=== PATIENT | male | born 2000 | race Caucasian/White ===

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

== ENCOUNTER 2019-03-27 11:06 | Inpatient (IN) | payer OTHER ==
[~2019-03-27] VITALS: Ht 167.6 cm; Wt 83.2 kg
[2019-03-27 11:39] LABS: HEMOGLOBIN 15.7 g/dl (13.5-17.5); MEAN CORPUSCULAR HEMOGLOBIN 29.1 pg (27.0-33.0); MEAN CORPUSCULAR HGB CONC 34.1 g/dl (32.0-36.5); MEAN CORPUSCULAR VOLUME 85.2 fl (80.0-96.0); PLATELET COUNT, AUTOMATED 318 10^3/uL (150-450); WHITE BLOOD COUNT 7.2 10^3/uL (4.0-10.0)
[2019-03-27 12:06] LABS: AMPHETAMINES LEVEL URINE NEGATIVE (NEGATIVE); BARBITURATES URINE NEGATIVE (NEGATIVE); BENZODIAZEPINES URINE NEGATIVE (NEGATIVE); CANNABINOIDS URINE NEGATIVE (NEGATIVE); COCAINE METABOLITE URINE NEGATIVE (NEGATIVE); METHADONE URINE NEGATIVE (NEGATIVE); OPIATES URINE NEGATIVE (NEGATIVE); PHENCYCLIDINE URINE NEGATIVE (NEGATIVE)
[2019-03-27 12:30] LABS: ACETAMINOPHEN LEVEL < 2.0 UG/ML (10.0-30.0); ALBUMIN 4.1 GM/DL (3.2-5.2); ALT/SGPT 34 U/L (12-78); BILIRUBIN,DIRECT 0.1 MG/DL (0.0-0.2); BILIRUBIN,TOTAL 0.3 MG/DL (0.2-1.0); BLOOD UREA NITROGEN 12 MG/DL (7-18); CARBON DIOXIDE LEVEL 25 MEQ/L (21-32); CHLORIDE LEVEL 108 MEQ/L (98-107); CREATININE FOR GFR 0.73 MG/DL (0.70-1.30); ETHYL ALCOHOL (ETHANOL) < 0.003 % (0.000-0.010); GLUCOSE, FASTING 98 MG/DL (70-100); POTASSIUM SERUM 4.4 MEQ/L (3.5-5.1); SALICYLATE LEVEL < 1.7 MG/DL (5.0-30.0); SODIUM LEVEL 140 MEQ/L (136-145); TOTAL PROTEIN 7.6 GM/DL (6.4-8.2)
[2019-03-27 14:23] VITALS: BP 136/82
[2019-03-28 06:00] VITALS: BP 125/71
--- NOTE | 2019-03-28 08:43 | HPEPDOC ---
[facility] Medical History & Physical Date of Admission Mar 28, 2019 Date of Service: Mar 28, 2019 Attending Physician: ORLANDO SHERWOOD MD History and Physical Chief complaint: "He broke down at work History of present illness: This is the 18-year-old male with no significant medical history, comes to the psychiatric unit and we have been consulted for medical reasons. The patient said that he was at work and felt very depressed and broke down. States that he has a lot of stressors and suffers from dep ression, but does not take any medications. He is not giving me any other details of what caused him to this breakdown He currently has been admitted to the psychiatric facility and the management will be as per him. He denies any shortness of breath, any chest pain, any headache. He states that he does not have any intentions of hurting himself or anybody else at this point of time. Family history. Hypertension. Social history. Denies smoking. Denies any drug abuse. Denies any recreational d rug use. Past medical history none except for depression. Past surgical history none as per patient Review of systems. Pertinent positive findings as per HPI and is negative PHYSICAL EXAMINATION: General: The patient is awake, alert, oriented x3, sitting up in the bed in no apparent distress. Head and Neck Exam: Extraocular muscles intact. Pupils equally round and reactive to light. Mucous membranes are moist. Neck is supple. There is no jugular venous distention (JVD). Cardiovascular: S1 and S2, regular rate. No real edema Respiratory: Clear auscultation Abdomen: Soft. Positive bowel sounds. Nontender. No organomegaly. Genitourinary: Deferred Musculoskeletal: Clubbing of the fingernails, no cyanosis was noted. Central Nervous System (PHP MYSQL DEVELOPER): No focal deficit. Power is 5/5 in all extremities. Assessment and plan This is a 18-year-old male was been admitted to the psychiatric facility for depression. And we have been consulted for medical management. 1. Depression as per psychiatric Patient has no other medical problems. I will sign off. Reconsult if needed Vital Signs Vital Signs Date Time Temp Pulse Resp B/P (MAP) Pulse Ox O2 Delivery O2 Flow Rate FiO2 03/28/19 06:00 98.2 92 14 125/71 (89) 03/27/19 13:23 100 Laboratory Data Labs 24H Laboratory Tests 2 03/27/19 11:21: Nucleated Red Blood Cells % (auto) 0.0, Anion Gap 7L, Calcium Level 9.0, Aspartate Amino Transf (AST/SGOT) 27, Alanine Aminotransferase (ALT/SGPT) 34, Alkaline Phosphatase 89, Total Bilirubin 0.3, Direct Bilirubin 0.1, Total Protein 7.6, Albumin 4.1, Albumin/Globulin Ratio 1.17, Thyroid Stimulating Hormone (TSH) 1.420, Salicylates Level < 1.7L, Urine Amphetamines Screen NEGATIVE, Urine Benzodiazepines Screen NEGATIVE, Urine Opiates Screen NEGATIVE, Urine Methadone Screen NEGATIVE, Acetaminophen Level < 2.0L, Urine Barbiturates Screen NEGATIVE, Urine Phencyclidine Screen NEGATIVE, Urine Cocaine Metabolite Screen NEGATIVE, Urine Cannabinoids Screen NEGATIVE, Ethyl Alcohol Level < 0.003 CBC/BMP Laboratory Tests 03/27/19 11:21 Red Blood Count 5.40, Mean Corpuscular Volume 85.2, Mean Corpuscular Hemoglobin 29.1, Mean Corpuscular Hemoglobin Concent 34.1, Red Cell Distribution Width 12.2 Home Medications No Active Prescriptions or Reported Meds Allergies Coded Allergies: Penicillins (Verified Allergy, Unknown, UNKNOWN REACTION, 03/27/19) Sulfa (Sulfonamide Antibiotics) (Verified Allergy, Unknown, UNKNOWN REACTION, 03/27/19) A-FIB/CHADSVASC A-FIB History Current/History of A-Fib/PAF?: No Current PO Anticoag Therapy: No ORLANDO SHERWOOD MD Mar 28, 2019 08:42
--- NOTE | 2019-03-28 11:43 | MHHPEPDOC ---
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 Psychiatric Review of Systems Depression (2 or more weeks): depressed mood, feelings of worthlesness, suicidal thoughts Muna (4 or more days of): denies Psychosis: denies PTSD: denies Anxiety: situational anxiety, stressor related anxiety Anxiety/ 6 months or more of: restlessness, keyed up, difficulty concentrating, irritability Past Psychiatric History Previous Psychiatric Diagnosis: depression Previous Psychiatric Admissions: denies Suicide Attempts: OD as SA at 15y/o never sought out help Psychiatric Follow-up: [facility] Psychiatric medications: none Past Medical History Medical Problems denies Head Injury: No Seizures: No Hospitalizations: No Surgeries: No Family Medical/Psychiatric HX Medical Problems noncontributory Psychiatric Disorders: No Addiction: No Suicide Attemps/Completions: No Addiction History denies Social History Childhood: born and raised in [place] by his father mostly as parents when he was a small child, has been estranged from his father for 2yrs and had been living with his mother until joined the , overall good childhood, no siblings Abuse/Trauma:denies Current Living Situation: 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 Social Support: family, ex-fiance Legal: denies Marital: single, never , no kids Mental Status Examination General Appearance: well groomed, appears stated age, hospital scubs/clothing Build: average Demeanor: average Eye Contact: average Activity: average, anxious Behavior: cooperative Speech: clear, spontaneous, reg/rate,rhythm,volume Mood: euthymic, anxious Mood better Affect: full, appropriate, anxious Thought Process: logical/linear, depressed, intact Thought Content (Delusions): none reported, denies SI, HI, AVH Thought Content (Other): none reported, appropriate Thought Content (Aggressive): none reported Perception (Hallucinations): none reported Perception (Other): none reported Cognition (Impairment of): none reported Cognition(Intelligence Est.): average Oriented: Awake, Alert, Oriented times three Insight: fair Judgment: Fair Psychosis: Denies Diagnoses unspecified depression r/o Adjustment d/o with depressed mood A-FIB/CHADSVASC A-FIB History Current/History of A-Fib/PAF?: No Current PO Anticoag Therapy: No Treatment Treatment ordered: NONE Reason Anticoagulant not given: Not indicated/[id number] Assessment Pt seen and states "I had a break down at work and realized I needed to get some help" as to why he's here. States that his breakdown may be due to something back home yet doesn't know what specifically about but think it may be anxiety about going home with all the stressors mentioned in HPI and trying to work things out with his ex-fiance back home (broke up a year ago) as they have been communicating on the phone and may get back together. 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 States he feels a bit better being here and denies SI currently. Denies he feels he needs to start an antidepressant yet and feels he wants to try therapy first and agrees to go to all group therapy for treatment and learning coping skills. Will provide vistaril prn anxiety and trazodone prn insomnia, risks/benefits discussed. Feels safe here. Initial Treatment Plan 1. Patient was admitted on a 9.39 status. 2. Complete history was obtained. 3. With patients permission, family will be contacted and database will be expanded. 4. Patients medication regimen will be reviewed and changed accordingly. 5. Patient will be provided with protected environment. 6. Patient will be treated with individual, group, and milieu therapies. 7. Patient will receive supportive psych-education. 8. Discharge planning will commence immediately. 9. Outpatient follow-up treatment will be strongly recommended. 10. The initial treatment plan will focus initially on: * Depression. * Risk for suicide. * Substance abuse. 11. vistaril 25mg q6hr prn anxiety and trazodone 50mg qhs prn insomnia ESTIMATED LENGTH OF STAY: 5-7 DAYS. TIME SPENT COUNSELING AND COORDINATING INITIAL CARE: 60 minutes. Vital Signs Vital Signs Date Time Temp Pulse Resp B/P (MAP) Pulse Ox O2 Delivery O2 Flow Rate FiO2 03/28/19 06:00 98.2 92 14 125/71 (89) 03/27/19 13:23 100 Laboratory Data 24H Labs Laboratory Tests 2 03/27/19 11:21: Nucleated Red Blood Cells % (auto) 0.0, Anion Gap 7L, Calcium Level 9.0, Aspartate Amino Transf (AST/SGOT) 27, Alanine Aminotransferase (ALT/SGPT) 34, Alkaline Phosphatase 89, Total Bilirubin 0.3, Direct Bilirubin 0.1, Total Protein 7.6, Albumin 4.1, Albumin/Globulin Ratio 1.17, Thyroid Stimulating Hormone (TSH) 1.420, Salicylates Level < 1.7L, Urine Amphetamines Screen NEGATIVE, Urine Benzodiazepines Screen NEGATIVE, Urine Opiates Screen NEGATIVE, Urine Methadone Screen NEGATIVE, Acetaminophen Level < 2.0L, Urine Barbiturates Screen NEGATIVE, Urine Phencyclidine Screen NEGATIVE, Urine Cocaine Metabolite Screen NEGATIVE, Urine Cannabinoids Screen NEGATIVE, Ethyl Alcohol Level < 0.003 CBC/BMP Laboratory Tests 03/27/19 11:21 Red Blood Count 5.40, Mean Corpuscular Volume 85.2, Mean Corpuscular Hemoglobin 29.1, Mean Corpuscular Hemoglobin Concent 34.1, Red Cell Distribution Width 12.2 Medications No Active Prescriptions or Reported Meds Allergies Coded Allergies: Penicillins (Verified Allergy, Unknown, UNKNOWN REACTION, 03/27/19) Sulfa (Sulfonamide Antibiotics) (Verified Allergy, Unknown, UNKNOWN REACTION, 03/27/19) MARIE VO DO Mar 28, 2019 11:42
[2019-03-28] MEDS ORDERED: traZODone 50 MG TAB PO PRN (11:45)
[2019-03-28] MEDS ORDERED: hydrOXYzine 25 MG TAB PO PRN (11:45)
[2019-03-28] MEDS ORDERED: MOM 30ML SUSPENSION UDC PO PRN (14:00)
[2019-03-28] MEDS ORDERED: ACETAMINOPHEN TAB 650MG DOSE (2X325MG) PO PRN (14:00)
[2019-03-28] MEDS ORDERED: MAALOX 30 ML SUSP *UDC PO PRN (14:00)
[2019-03-28 18:21] VITALS: BP 140/85
[2019-03-29 06:36] VITALS: BP 120/63
--- NOTE | 2019-03-29 15:04 | MHIPN ---
DATE: 03/29/2019 The patient today states that he is feeling better. Says his mood is 3/10, where the closest to 10 is the most depressed. He says he slept very well without even needing trazodone and he states "My suicidal thoughts are gone." MENTAL STATUS EXAMINATION: He is alert and oriented times three. Eye contact fairly good. He is verbally spontaneous. There is no formal thought disorder noted. Mood is better. Affect full range and appropriate. He is not psychotic, suicidal or homicidal. Concentration and memory is good. Insight and judgment is fair. DIAGNOSIS: Unspecified depressive disorder. TREATMENT PLAN: At this point, we will continue to further evaluate the patient for continued elevation of his mood and continued resolution of suicidal ideations and to titrate his medications as indicated.
[2019-03-29 18:11] VITALS: BP 150/84
[2019-03-30 06:09] VITALS: BP 116/70
--- NOTE | 2019-03-30 09:05 | MHIPNPDOC ---
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 VITAL SIGNS: See below. NEW TEST RESULTS: See below. CURRENT MEDICATIONS: See below. MENTAL STATUS EXAMINATION: General Appearance: well groomed, appears stated age, hospital scubs/clothing Build: average Demeanor: average Eye Contact: average Activity: average, less anxious Behavior: cooperative Speech: clear, spontaneous, reg/rate,rhythm,volume Mood: euthymic, less anxious Mood ok Affect: full, appropriate, congruent Thought Process: logical/linear, less depressed, intact Thought Content (Delusions): none reported, denies SI, HI, AVH Thought Content (Other): none reported, appropriate Thought Content (Aggressive): none reported Perception (Hallucinations): none reported Perception (Other): none reported Cognition (Impairment of): none reported Cognition(Intelligence Est.): average Oriented: Awake, Alert, Oriented times three Insight: fair Judgment: Fair Psychosis: Denies DIAGNOSES: unspecified depression r/o Adjustment d/o with depressed mood ASSESSMENT:Pt seen and states that his mood is "ok." States he slept well last night. Feels he is tolerating his medications and they're beneficial. He is attending groups and finding them helpful. He denies depression, anxiety, insomnia, SI/HI, hallucinations, delusions. Pt feels safe here. MANAGEMENT PLAN: continue plan. Medications: vistaril 25mg q6hr prn anxiety trazodone 50mg qhs prn insomnia TIME SPENT: 30 minutes. Vital Signs Vital Signs Date Time Temp Pulse Resp B/P (MAP) Pulse Ox O2 Delivery O2 Flow Rate FiO2 03/30/19 06:09 98.6 68 18 116/70 (85) 03/27/19 13:23 100 Current Medications Current Medications Acetaminophen (Tylenol Tab) 650 mg Q6HP PRN PO HEADACHE or DISCOMFORT; Start 03/28/19 at 14:00 Al Hydrox/Mg Hydrox/Simethicone (Mylanta) 30 ml Q4HP PRN PO HEARTBURN/INDIGESTION; Start 03/28/19 at 14:00 Home Med (Med Rec Complete!) ASDIRECTED XX ; Start 03/27/19 at 14:30; Stop 03/27/19 at 14:30; Status DC Hydroxyzine HCl (Atarax) 25 mg Q6HP PRN PO ANXIETY; Start 03/28/19 at 11:45 Magnesium Hydroxide (Milk Of Magnesia) 30 ml DAILYPRN PRN PO CONSTIPATION; Start 03/28/19 at 14:00 Trazodone HCl (Desyrel) 50 mg QHSP PRN PO INSOMNIA; Start 03/28/19 at 11:45 Allergies Coded Allergies: Penicillins (Verified Allergy, Unknown, UNKNOWN REACTION, 03/27/19) Sulfa (Sulfonamide Antibiotics) (Verified Allergy, Unknown, UNKNOWN REACTION, 03/27/19) MARIE VO DO Mar 30, 2019 9:05 am
[2019-03-30 18:00] VITALS: BP 130/86
[2019-03-31 06:41] VITALS: BP 131/75
--- NOTE | 2019-03-31 11:50 | MHIPN ---
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 Reportedly, he wanted to go to the range and shoot himself. He reports that he has been noncompliant with his medications, he does not want to take medication as it is making him tired. He wants to only continue therapy, individual and group therapy. His stressors are mainly family issues. MENTAL STATUS EXAMINATION: He is casually dressed, well groomed, cooperative, made good eye contact. Speech is spontaneous, conversant. Mood is mildly depressed. Affect is appropriate with mood. Thought process is linear and goal directed. Thought content: Denied any delusions. Denied any suicidal or homicidal ideas. Cognitive: He is alert and oriented to time, place, and person. Memory -- immediate, remote, and recent are good. Denied suicidal or homicidal ideas. Insight and judgment are fair to limited. VITAL SIGNS: Temperature 98.4, pulse 65, respiratory rate is 16, blood pressure is 131/75. LABORATORIES: CBC and CMP within normal limits. Toxicology was negative. Currently, he is only on antianxiety medications on an as needed basis. PLAN: Continue individual and group therapy. Consider discharging the patient when stable. Estimated length of stay is 2 to 3 days.
[2019-03-31 18:12] VITALS: BP 144/60
[2019-04-01 06:32] VITALS: BP 128/57
[2019-04-01 18:12] VITALS: BP 155/78
[2019-04-02 06:00] VITALS: BP 108/56
[2019-04-02] MEDS ORDERED: SERTRALINE HCL 50 MG TAB PO ONE (12:00)
[2019-04-02 13:43] VITALS: BP 108/56
[2019-04-02 18:00] VITALS: BP 138/72
--- NOTE | 2019-04-02 18:39 | MHIPNPDOC ---
[facility] Progress Note Progress Note Inpatient Progress Note Vasyl Franklin Male Date of : N/A Date of Service: 04/02/2019 History of Present Illness Patient, a 18-year-old young man with a history of fairly mild adjustment problems, presents to the [facility] ER for reported safety issues. Patient has been admitted to the unit and has declined medications for the majority of his stay. He was slated for discharge later in his admission. Interval History Patient was met with today, which was initially intended to be a discharge meeting. Patient, after describing to this provider that he felt safe to go home and that a chain of command convening was arranged, he subsequently reported to a nurse that he felt unready and unsafe to return home. After approaching the patient, discussing the situation, he described his depression and symptoms did not feel significantly controlled at this time. There was some suspicion that there could be secondary gain aspects related to this or avoidance of fear of punishment. Discussed with the patient at length and he's willing to try medication as he feels his symptoms haven't sufficiently resolved in order to deal with the stressors that had brought him in primarily. Review Of Systems As above. Psychotherapy None on this visit. Vital Signs Reviewed. Mental Status Examination General: Well dressed with good hygiene Speech: Spontaneous and fluid Thought processes: Linear and logical MSK: Smooth and coordinated gait, no signs of tremors or involuntary orofacial movements Thought content: Pessimistic Abstract reasoning, and computation: Intact Description of associations: Intact Description of abnormal or psychotic thoughts: Patient admits to questionable suicidal thoughts. Denies homicidal thoughts. Denies auditory or visual hallucinations. Does not appear to be endorsing internal stimuli and does not appear to be endorsing any bizarre paranoid ideation Judgment: Poor Insight: Poor Orientation: Alert and orientated 3 Cognition: Grossly normal Recent and remote memory: Intact Attention span and concentration: Intact Fund of knowledge: Adequate Mood: "Bad" Affect: Dysthymic with a constricted range Diagnoses Adjustment disorder with disruption of mood and conduct. Cluster C personality traits. Assessment and Plan Patient, a 18-year-old young man who was originally slated to be discharged today, however he stated that he did not feel ready for discharge and it was subsequently terminated as this patient was being covered by this provider. Discussed with the patient at length that he would need to try a medication as it appears that several days on the in-patient unit without medication has yet to yield sufficient symptom resolution, as he had described. Start the patient on 50 mg of sertraline. Discussed the risks, benefits, and potential side effects of this medication regimen. Disposition Patient will need a further in-patient stay in order to titrate his medications and treat his depressive symptoms. Time Spent 15 minutes [id number]. Tuesday Vital Signs Vital Signs Date Time Temp Pulse Resp B/P (MAP) Pulse Ox O2 Delivery O2 Flow Rate FiO2 04/02/19 13:43 98.3 78 16 108/56 99 Current Medications Current Medications Acetaminophen (Tylenol Tab) 650 mg Q6HP PRN PO HEADACHE or DISCOMFORT; Start 03/28/19 at 14:00 Al Hydrox/Mg Hydrox/Simethicone (Mylanta) 30 ml Q4HP PRN PO HEARTBURN/INDIGESTION; Start 03/28/19 at 14:00 Home Med (Med Rec Complete!) ASDIRECTED XX ; Start 03/27/19 at 14:30; Stop 03/27/19 at 14:30; Status DC Hydroxyzine HCl (Atarax) 25 mg Q6HP PRN PO ANXIETY; Start 03/28/19 at 11:45 Magnesium Hydroxide (Milk Of Magnesia) 30 ml DAILYPRN PRN PO CONSTIPATION; Start 03/28/19 at 14:00 Sertraline HCl (Zoloft) 50 mg DAILY PO ; Start 04/03/19 at 09:00 Trazodone HCl (Desyrel) 50 mg QHSP PRN PO INSOMNIA; Start 03/28/19 at 11:45 Allergies Coded Allergies: Penicillins (Verified Allergy, Unknown, UNKNOWN REACTION, 03/27/19) Sulfa (Sulfonamide Antibiotics) (Verified Allergy, Unknown, UNKNOWN REACTION, 03/27/19) AMBROSE JAIMES DO Apr 02, 2019 18:39
[2019-04-03 06:50] VITALS: BP 123/69
--- NOTE | 2019-04-03 08:57 | MHIPNPDOC ---
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 VITAL SIGNS: See below. NEW TEST RESULTS: See below. CURRENT MEDICATIONS: See below. MENTAL STATUS EXAMINATION: General Appearance: well groomed, appears stated age, hospital scrubs/clothing Build: average Demeanor: average Eye Contact: average Activity: average, anxious Behavior: cooperative Speech: clear, spontaneous, reg/rate,rhythm,volume Mood: euthymic, anxious Mood "anxious" Affect: anxious, appropriate, congruent Thought Process: logical/linear, less depressed, intact Thought Content (Delusions): none reported, denies SI, HI, AVH Thought Content (Other): none reported, appropriate Thought Content (Aggressive): none reported Perception (Hallucinations): none reported Perception (Other): none reported Cognition (Impairment of): none reported Cognition(Intelligence Est.): average Oriented: Awake, Alert, Oriented times three Insight: fair Judgment: Fair Psychosis: Denies DIAGNOSES: unspecified depression r/o Adjustment d/o with depressed mood ASSESSMENT:Pt seen and states that he feels "anxious" today as he started he started talking to his mother again who he states is "toxic" b/c she "dumps all her problems on me and I can't solve them for her" making him feel helpless and frustrated. States his siblings have stopped talking to her due to her toxic affect. Encouraged to start to talk to his siblings rather than mother as states he wants a better connection to his family which is why he continues to talk to his mother. Plans to stop talking to her. Endorses anxiety and daytime fatigue after starting zoloft yesterday and with decrease dose and change to nightly dosing to reduce. States he slept well last night. He is attending groups and finding them helpful. He denies depression, anxiety, insomnia, SI/HI, hallucinations, delusions. Pt feels safe here. MANAGEMENT PLAN: continue plan. Medications: zoloft 25mg qhs vistaril 25mg q6hr prn anxiety trazodone 50mg qhs prn insomnia TIME SPENT: 30 minutes. Vital Signs Vital Signs Date Time Temp Pulse Resp B/P (MAP) Pulse Ox O2 Delivery O2 Flow Rate FiO2 04/03/19 06:50 97.8 52 18 123/69 (87) 04/02/19 13:43 99 Current Medications Current Medications Acetaminophen (Tylenol Tab) 650 mg Q6HP PRN PO HEADACHE or DISCOMFORT; Start 03/28/19 at 14:00 Al Hydrox/Mg Hydrox/Simethicone (Mylanta) 30 ml Q4HP PRN PO HEARTBURN/INDIGES TION; Start 03/28/19 at 14:00 Home Med (Med Rec Complete!) ASDIRECTED XX ; Start 03/27/19 at 14:30; Stop 03/27/19 at 14:30; Status DC Hydroxyzine HCl (Atarax) 25 mg Q6HP PRN PO ANXIETY; Start 03/28/19 at 11:45 Magnesium Hydroxide (Milk Of Magnesia) 30 ml DAILYPRN PRN PO CONSTIPATION; Start 03/28/19 at 14:00 Sertraline HCl (Zoloft) 50 mg DAILY PO ; Start 04/03/19 at 09:00 Trazodone HCl (Desyrel) 50 mg QHSP PRN PO INSOMNIA; Start 03/28/19 at 11:45 Allergies Coded Allergies: Penicillins (Verified Allergy, Unknown, UNKNOWN REACTION, 03/27/19) Sulfa (Sulfonamide Antibiotics) (Verified Allergy, Unknown, UNKNOWN REACTION, 03/27/19) MRAIE VO DO Apr 03, 2019 8:57 am
[2019-04-03] MEDS ORDERED: SERTRALINE HCL 50 MG TAB PO SCH (09:00)
[2019-04-03 18:00] VITALS: BP 126/72
[2019-04-03 20:33] VITALS: BP 123/69
[2019-04-03] MEDS: SERTRALINE HCL 25 MG TABLET PO SCH (21:21)
[2019-04-04 06:54] VITALS: BP 131/65
--- NOTE | 2019-04-04 09:47 | MHIPNPDOC ---
[facility] Progress Note Progress Note DATE OF SERVICE: 04/04/19 HISTORY: Patient is a 18 -year-old , AD, male, with no history psych admissions and history OD as SA at 15y/o who presented to ED with his Ray after he told a fellow soldier he was feeling suicidal and that soldier told his Ray per ED. 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 VITAL SIGNS: See below. NEW TEST RESULTS: See below. CURRENT MEDICATIONS: See below. MENTAL STATUS EXAMINATION: General Appearance: well groomed, appears stated age, hospital scrubs/clothing Build: average Demeanor: average Eye Contact: average Activity: average, anxious Behavior: cooperative Speech: clear, spontaneous, reg/rate,rhythm,volume Mood: depressed, anxious Mood "better" Affect: anxious, appropriate, congruent Thought Process: logical/linear, less depressed, intact Thought Content (Delusions): none reported, denies SI, HI, AVH Thought Content (Other): none reported, appropriate Thought Content (Aggressive): none reported Perception (Hallucinations): none reported Perception (Other): none reported Cognition (Impairment of): none reported Cognition(Intelligence Est.): average Oriented: Awake, Alert, Oriented times three Insight: fair Judgment: Fair Psychosis: Denies DIAGNOSES: unspecified depression r/o Adjustment d/o with depressed mood ASSESSMENT:Pt seen and states that he feels "better" today since he stopped talking to her as he realizes she is not good for him and his mood. Has not reached out to his siblings as doesn't remember their phone numbers and told can have nurses help him with his phone to look their numbers up so he can call them on the unit. Tolerating change in zoloft dose yesterday with improved anxiety and fatigue, is finding it beneficial. States he slept well last night. He is attending groups and finding them helpful. He denies SI/HI, hallucinations, delusions. Pt feels safe here. MANAGEMENT PLAN: continue plan. Medications: zoloft 25mg qhs vistaril 25mg q6hr prn anxiety trazodone 50mg qhs prn insomnia TIME SPENT: 30 minutes. Vital Signs Vital Signs Date Time Temp Pulse Resp B/P (MAP) Pulse Ox O2 Delivery O2 Flow Rate FiO2 04/04/19 06:54 98.7 58 12 131/65 (87) 04/03/19 20:33 99 Current Medications Current Medications Acetaminophen (Tylenol Tab) 650 mg Q6HP PRN PO HEADACHE or DISCOMFORT; Start 03/28/19 at 14:00 Al Hydrox/Mg Hydrox/Simethicone (Mylanta) 30 ml Q4HP PRN PO HEARTBURN/IN DIGESTION; Start 03/28/19 at 14:00 Home Med (Med Rec Complete!) ASDIRECTED XX ; Start 03/27/19 at 14:30; Stop 03/27/19 at 14:30; Status DC Hydroxyzine HCl (Atarax) 25 mg Q6HP PRN PO ANXIETY; Start 03/28/19 at 11:45 Magnesium Hydroxide (Milk Of Magnesia) 30 ml DAILYPRN PRN PO CONSTIPATION; Start 03/28/19 at 14:00 Sertraline HCl (Zoloft) 25 mg QHS PO Last administered on 04/03/19at 21:21; Start 04/03/19 at 21:00 Sertraline HCl (Zoloft) 50 mg DAILY PO ; Start 04/03/19 at 09:00; Status Cancel Trazodone HCl (Desyrel) 50 mg QHSP PRN PO INSOMNIA; Start 03/28/19 at 11:45 Allergies Coded Allergies: Penicillins (Verified Allergy, Unknown, UNKNOWN REACTION, 03/27/19) Sulfa (Sulfonamide Antibiotics) (Verified Allergy, Unknown, UNKNOWN REACTION, 03/27/19) MARIE VO DO Apr 04, 2019 9:47 am
[2019-04-04 18:00] VITALS: BP 135/63
[2019-04-04] MEDS: SERTRALINE HCL 25 MG TABLET PO SCH (21:17)
[2019-04-05 06:46] VITALS: BP 134/76
[2019-04-05 18:00] VITALS: BP 141/93
[2019-04-05 19:36] VITALS: BP 134/76
[2019-04-05] MEDS: SERTRALINE HCL 25 MG TABLET PO SCH (21:07)
[2019-04-06 07:00] VITALS: BP 134/60
--- NOTE | 2019-04-06 10:21 | MHIPNPDOC ---
[facility] Progress Note Progress Note DATE OF SERVICE: 04/06/19 HISTORY: Patient is a 18 -year-old , AD, male, with no history psych admissions and history OD as SA at 15y/o who presented to ED with his Ray after he told a fellow soldier he was feeling suicidal and that soldier told his Ray per ED. 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 VITAL SIGNS: See below. NEW TEST RESULTS: See below. CURRENT MEDICATIONS: See below. MENTAL STATUS EXAMINATION: General Appearance: well groomed, appears stated age, hospital scrubs/clothing Build: average Demeanor: average Eye Contact: average Activity: average, anxious Behavior: cooperative Speech: clear, spontaneous, reg/rate,rhythm,volume Mood: depressed, anxious Mood "I feel like I want to crawl out of my skin" Affect: anxious, appropriate, congruent Thought Process: logical/linear, depressed, intact, anxious Thought Content (Delusions): none reported, denies SI, HI, AVH Thought Content (Other): none reported, appropriate Thought Content (Aggressive): none reported Perception (Hallucinations): none reported Perception (Other): none reported Cognition (Impairment of): none reported Cognition(Intelligence Est.): average Oriented: Awake, Alert, Oriented times three Insight: fair Judgment: Fair Psychosis: Denies DIAGNOSES: unspecified depression r/o Adjustment d/o with depressed mood ASSESSMENT:Pt seen and states that he does not feel the zoloft is helpful as he continues to endorse significant anxiety affecting his over all mood and ability to function in his life due to overwhelming thoughts and feelings. Wants to "crawl out of my skin." Discussed changing pt from zoloft to prozac that he may find more beneficial as can at times and is a gold standard SSRI treatment for anxiety and OCD (pt doesn't not have OCD though) based on clinical studies and pt date over time. Has not reached out to his siblings as doesn't remember their phone numbers and told can have nurses help him with his phone to look their numbers up so he can call them on the unit. States he slept well last night. He is attending groups and finding them helpful. He denies SI/HI, hallucinations, delusions. Pt feels safe here. MANAGEMENT PLAN: continue plan. d/c zoloft and start prozac 10mg daily, inc rease vistaril to 50mg q4hr prn anxiety Medications: zoloft 25mg qhs vistaril 50mg q4hr prn anxiety trazodone 50mg qhs prn insomnia TIME SPENT: 30 minutes. Vital Signs Vital Signs Date Time Temp Pulse Resp B/P (MAP) Pulse Ox O2 Delivery O2 Flow Rate FiO2 04/06/19 07:00 98.1 55 16 134/60 (84) 04/05/19 19:36 99 Current Medications Current Medications Acetaminophen (Tylenol Tab) 650 mg Q6HP PRN PO HEADACHE or DISCOMFORT; Start 03/28/19 at 14:00 Al Hydrox/Mg Hydrox/Simethicone (Mylanta) 30 ml Q4HP PRN PO HEARTBURN/INDIGESTION; Start 03/28/19 at 14:00 Home Med (Med Rec Complete!) ASDIRECTED XX ; Start 03/27/19 at 14:30; Stop 03/27/19 at 14:30; Status DC Hydroxyzine HCl (Atarax) 25 mg Q6HP PRN PO ANXIETY; Start 03/28/19 at 11:45 Magnesium Hydroxide (Milk Of Magnesia) 30 ml DAILYPRN PRN PO CONSTIPATION; Start 03/28/19 at 14:00 Sertraline HCl (Zoloft) 25 mg QHS PO Last administered on 04/05/19at 21:07; Start 04/03/19 at 21:00 Sertraline HCl (Zoloft) 50 mg DAILY PO ; Start 04/03/19 at 09:00; Status Cancel Trazodone HCl (Desyrel) 50 mg QHSP PRN PO INSOMNIA; Start 03/28/19 at 11:45 Allergies Coded Allergies: Penicillins (Verified Allergy, Unknown, UNKNOWN REACTION, 03/27/19) Sulfa (Sulfonamide Antibiotics) (Verified Allergy, Unknown, UNKNOWN REAC TION, 03/27/19) MARIE VO DO Apr 06, 2019 10:21 am
[2019-04-06] MEDS ORDERED: hydrOXYzine 50 MG TAB PO PRN (10:30)
[2019-04-06] MEDS ORDERED: FLUoxetine 10 MG CAP PO ONE (11:00)
[2019-04-06 18:11] VITALS: BP 123/63
[2019-04-07 06:51] VITALS: BP 132/60
[2019-04-07] MEDS: FLUoxetine 10 MG CAP PO SCH (09:06)
[2019-04-07 18:00] VITALS: BP 128/60
[2019-04-08 06:58] VITALS: BP 121/58
[2019-04-08] MEDS: FLUoxetine 10 MG CAP PO SCH (08:50)
[2019-04-08 18:00] VITALS: BP 130/80
[2019-04-09 06:59] VITALS: BP 116/57
[2019-04-09] MEDS: FLUoxetine 10 MG CAP PO SCH (09:40)
--- NOTE | 2019-04-09 11:22 | MHIPNPDOC ---
[facility] Progress Note Progress Note DATE OF SERVICE: 04/09/19 HISTORY: Patient is a 18 -year-old , AD, male, with no history psych admissions and history OD as SA at 15y/o who presented to ED with his Ray after he told a fellow soldier he was feeling suicidal and that soldier told his Ray per ED. 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 VITAL SIGNS: See below. NEW TEST RESULTS: See below. CURRENT MEDICATIONS: See below. MENTAL STATUS EXAMINATION: General Appearance: well groomed, appears stated age, hospital scrubs/clothing Build: average Demeanor: average Eye Contact: average Activity: average, anxious Behavior: cooperative Speech: clear, spontaneous, reg/rate,rhythm,volume Mood: less depressed, less anxious Mood "empty" Affect: less anxious, appropriate, congruent Thought Process: logical/linear, less depressed, intact, anxious Thought Content (Delusions): none reported, denies SI, HI, AVH Thought Content (Other): none reported, appropriate Thought Content (Aggressive): none reported Perception (Hallucinations): none reported Perception (Other): none reported Cognition (Impairment of): none reported Cognition(Intelligence Est.): average Oriented: Awake, Alert, Oriented times three Insight: fair Judgment: Fair Psychosis: Denies DIAGNOSES: unspecified depression r/o Adjustment d/o with depressed mood ASSESSMENT:Pt seen and states that he just feels "empty" but not overtly depressed and denies any thoughts of suicide. Appears at this point that most of his psychiatric improved will continue in outpatient with individual and group therapy. Is going to groups but is not working on coping mechanisms and encouraged to put work into them to improve mood. Does feel the prozac is helpful and tolerating well. Endorses improved anxiety. Has not reached out to his siblings as doesn't remember their phone numbers and told can have nurses help him with his phone to look their numbers up so he can call them on the unit. States he slept well last night. He denies SI/HI, hallucinations, delusions. Pt feels safe here. MANAGEMENT PLAN: continue plan. d/c tomorrow Medications: prozac 10mg qhs vistaril 50mg q4hr prn anxiety trazodone 50mg qhs prn insomnia TIME SPENT: 30 minutes. Vital Signs Vital Signs Date Time Temp Pulse Resp B/P (MAP) Pulse Ox O2 Delivery O2 Flow Rate FiO2 04/09/19 06:59 97.2 57 12 116/57 (76) 04/05/19 19:36 99 Current Medications Current Medications Acetaminophen (Tylenol Tab) 650 mg Q6HP PRN PO HEADACHE or DISCOMFORT; Start 03/28/19 at 14:00 Al Hydrox/Mg Hydrox/Simethicone (Mylanta) 30 ml Q4HP PRN PO HEARTBURN/INDIGESTION; Start 03/28/19 at 14:00 Fluoxetine HCl (PROzac) 10 mg DAILY PO Last administered on 04/08/19at 08:50; Start 04/07/19 at 09:00 Home Med (Med Rec Complete!) ASDIRECTED XX ; Start 03/27/19 at 14:30; Stop 03/27/19 at 14:30; Status DC Hydroxyzine HCl (Atarax) 25 mg Q6HP PRN PO ANXIETY; Start 03/28/19 at 11:45; Status Cancel Hydroxyzine HCl (Atarax) 50 mg Q4HP PRN PO ANXIETY/AGITATION; Start 04/06/19 at 10:30 Magnesium Hydroxide (Milk Of Magnesia) 30 ml DAILYPRN PRN PO CONSTIPATION; Start 03/28/19 at 14:00 Sertraline HCl (Zoloft) 25 mg QHS PO Last administered on 04/05/19at 21:07; Start 04/03/19 at 21:00; Stop 04/06/19 at 10:24; Status DC Sertraline HCl (Zoloft) 50 mg DAILY PO ; Start 04/03/19 at 09:00; Status Cancel Trazodone HCl (Desyrel) 50 mg QHSP PRN PO INSOMNIA; Start 03/28/19 at 11:45 Allergies Coded Allergies: Penicillins (Verified Allergy, Unknown, UNKNOWN REACTION, 03/27/19) Sulfa (Sulfonamide Antibiotics) (Verified Allergy, Unknown, UNKNOWN REACTION, 03/27/19) MARIE VO DO Apr 09, 2019 9:21 am
[2019-04-09] MEDS ORDERED: TRAZ-252 PO (11:33)
[2019-04-09] MEDS ORDERED: FLUO10CA8 PO (11:33)
[2019-04-09] MEDS ORDERED: HYDRO50TAB PO (11:33)
--- NOTE | 2019-04-09 11:34 | MHDSPDOC ---
[facility] Discharge Summary Discharge Summary DATE OF ADMISSION: Mar 27, 2019 at 12:46 pm DATE OF DISCHARGE: April 10, 2019 DISCHARGE DIAGNOSES: unspecified depression r/o Adjustment d/o with depressed mood REASON FOR ADMISSION: Patient is a 18 -year-old , AD, male, with no history psych admissions and history OD as SA at 15y/o who presented to ED with his Ray after he told a fellow soldier he was feeling suicidal and that soldier told his Ray per ED. 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 CONSULTANTS INVOLVED: none TREATMENT AND PROGRESS ON THE UNIT : Pt was admitted to [facility], seen for psychiatric assessment and started on zoloft at first for depression but experienced side effect of anxiety so d/c and started on Prozac 10mg daily that he tolerated well and found beneficial. He was provided vistaril 100mg q6hr prn anxiety and trazodone 50mg qhs prn insomnia. Pt found his medications beneficial and tolerated them well. He attended groups daily during his stay. His symptoms improved with treatment. On day of discharge he denied overt depression, anxiety, insomnia, SI/HI, hallucinations, delusions. He was discharged home after Ray meeting with follow-up at [facility]. He felt safe for discharge. DISCHARGE ASSESSMENT: Pt seen and states that he just feels "ok" and denies overt depression and denies any thoughts of suicide. States anxiety is improved. Is looking forward to going home with Ray today. Appears at this point that most of his psychiatric improved will continue in outpatient with individual and group therapy. Is going to groups and learning coping skills. Symptoms appear improved and appears euthymic and full in milieu. Endorses improved anxiety. States he slept well last night. He denies overt depression, anxiety, insomnia, SI/HI, hallucinations, delusions. Pt feels safe to d/c with Ray today. MENTAL STATUS EXAMINATION ON DISCHARGE: General Appearance: well groomed, appears stated age, hospital scrubs/clothing Build: average Demeanor: average Eye Contact: average Activity: average, calm in milieu Behavior: cooperative Speech: clear, spontaneous, reg/rate,rhythm,volume Mood: euthymic, full in milieu Mood "ok" Affect: euthymic, appropriate, congruent Thought Process: logical/linear, intact Thought Content (Delusions): none reported, denies SI, HI, AVH Thought Content (Other): none reported, appropriate Thought Content (Aggressive): none reported Perception (Hallucinations): none reported Perception (Other): none reported Cognition (Impairment of): none reported Cognition(Intelligence Est.): average Oriented: Awake, Alert, Oriented times three Insight: fair-good Judgment: Fair-good Psychosis: Denies MEDICATIONS ON DISCHARGE: prozac 10mg qhs vistaril 100mg q4hr prn anxiety trazodone 50mg qhs prn insomnia PLAN/FOLLOWUP ARRANGEMENTS: D/c home with Ray with follow-up at [facility]. The amount of time spent in the coordination of care for this patient was approximately 30 minutes. Vital Signs/I&Os Vital Signs Date Time Temp Pulse Resp B/P (MAP) Pulse Ox O2 Delivery O2 Flow Rate FiO2 04/09/19 06:59 97.2 57 12 116/57 (76) 04/05/19 19:36 99 Medications No Active Prescriptions or Reported Meds Allergies Coded Allergies: Penicillins (Verified Allergy, Unknown, UNKNOWN REACTION, 03/27/19) Sulfa (Sulfonamide Antibiotics) (Verified Allergy, Unknown, UNKNOWN REACTION, 03/27/19) MARIE VO DO Apr 09, 2019 11:34 am
[2019-04-09 18:14] VITALS: BP 161/81
[2019-04-10 06:49] VITALS: BP 117/57
[2019-04-10] MEDS: FLUoxetine 10 MG CAP PO SCH (10:04)
== END 2019-04-10 11:22 | disposition home or self-care (01) | DRG 881 ==
LOC: M ED 11:06 → M ED INP 12:46 → M PSY 14:20
PROVIDERS: ADMIT Psychiatry & Neurology Addiction Medicine; ATTEND Psychiatry & Neurology Psychiatry
DX: F32.9 Major depressive disorder, single episode, unspecified (principal); Z88.0 Allergy status to penicillin; Z88.2 Allergy status to sulfonamides; F43.21 Adjustment disorder with depressed mood; Z91.14 Patient's other noncompliance with medication regimen

== ENCOUNTER 2019-04-12 16:12 | Emergency (ER) | payer OTHER ==
[~2019-04-12] VITALS: Ht 170.2 cm; Wt 84.1 kg
[~2019-04-12 16:12] MED LIST: FLUO10CA8 PO; HYDRO50TAB PO; TRAZ-252 PO
[2019-04-12 17:17] LABS: HEMATOCRIT 44.9 % (42.0-52.0); HEMOGLOBIN 15.3 g/dl (13.5-17.5); MEAN CORPUSCULAR HEMOGLOBIN 29.4 pg (27.0-33.0); MEAN CORPUSCULAR HGB CONC 34.1 g/dl (32.0-36.5); MEAN CORPUSCULAR VOLUME 86.3 fl (80.0-96.0); PLATELET COUNT, AUTOMATED 300 10^3/uL (150-450); WHITE BLOOD COUNT 10.7 10^3/uL (4.0-10.0)
[2019-04-12 17:57] LABS: ACETAMINOPHEN LEVEL < 2.0 UG/ML (10.0-30.0); ALBUMIN 4.3 GM/DL (3.2-5.2); ALT/SGPT 28 U/L (12-78); BILIRUBIN,DIRECT < 0.1 MG/DL (0.0-0.2); BILIRUBIN,TOTAL 0.1 MG/DL (0.2-1.0); BLOOD UREA NITROGEN 12 MG/DL (7-18); CALCIUM LEVEL 9.5 MG/DL (8.5-10.1); CARBON DIOXIDE LEVEL 28 MEQ/L (21-32); CHLORIDE LEVEL 108 MEQ/L (98-107); CREATININE FOR GFR 0.82 MG/DL (0.70-1.30); ETHYL ALCOHOL (ETHANOL) < 0.003 % (0.000-0.010); GLUCOSE, FASTING 90 MG/DL (70-100); SALICYLATE LEVEL < 1.7 MG/DL (5.0-30.0); SODIUM LEVEL 143 MEQ/L (136-145); TOTAL PROTEIN 7.7 GM/DL (6.4-8.2)
[2019-04-12 18:56] LABS: AMPHETAMINES LEVEL URINE NEGATIVE (NEGATIVE); BARBITURATES URINE NEGATIVE (NEGATIVE); BENZODIAZEPINES URINE NEGATIVE (NEGATIVE); CANNABINOIDS URINE NEGATIVE (NEGATIVE); COCAINE METABOLITE URINE NEGATIVE (NEGATIVE); METHADONE URINE NEGATIVE (NEGATIVE); OPIATES URINE NEGATIVE (NEGATIVE); PHENCYCLIDINE URINE NEGATIVE (NEGATIVE)
[2019-04-12 20:05] VITALS: BP 144/74
== END 2019-04-12 20:07 | disposition home or self-care (01) ==
LOC: M ED 16:12
DX: F33.9 Major depressive disorder, recurrent, unspecified (principal); F41.9 Anxiety disorder, unspecified; F43.10 Post-traumatic stress disorder, unspecified; Z79.899 Other long term (current) drug therapy; Z88.0 Allergy status to penicillin; Z88.1 Allergy status to other antibiotic agents; Z88.2 Allergy status to sulfonamides; F17.210 Nicotine dependence, cigarettes, uncomplicated
CPT/HCPCS: 36415; 80048; 80076; 80307; 84443; 85027; 99284; G0480